=== PATIENT | male | born 1995 | race African-American/Black ===

== ENCOUNTER 2017-09-25 06:05 | Emergency (ER) | payer SELFPAY ==
[~2017-09-25] VITALS: Ht 195.6 cm; Wt 100.0 kg
[2017-09-25] MEDS ORDERED: IBUPROFEN 600MG TABLET PO ONE (06:45)
[2017-09-25 06:52] VITALS: BP 120/66
== END 2017-09-25 07:29 | disposition home or self-care (01) ==
LOC: ER 06:05
DX: R51 Headache (principal); V49.88XA Car occupant (driver) (passenger) injured in other specified transport accidents, initial encounter; Y93.89 Activity, other specified; Y92.410 Unspecified street and highway as the place of occurrence of the external cause; Y99.8 Other external cause status
CPT/HCPCS: 99282